=== PATIENT | female | born 1975 | race Caucasian/White ===

== ENCOUNTER → 2024-03-07 09:56 | Outpatient (REF) | payer BC, SELFPAY | LOC: HWEVLT 09:56 | PROVIDERS: ATTENDING PHYSICIAN Radiology Vascular & Interventional Radiology | DX: I83.892 Varicose veins of left lower extremity with other complications (principal) | CPT/HCPCS: 36478; C1769 ==

== ENCOUNTER → 2024-03-21 15:27 | Outpatient (REF) | payer BC, SELFPAY | LOC: HWEVLT 15:27 | PROVIDERS: ATTENDING PHYSICIAN Radiology Diagnostic Radiology | DX: I83.892 Varicose veins of left lower extremity with other complications (principal) | CPT/HCPCS: 93971 ==

== ENCOUNTER → 2024-05-23 12:57 | Outpatient (REF) | payer BC, SELFPAY | LOC: HWEVLT 12:57 | PROVIDERS: ATTENDING PHYSICIAN Radiology Vascular & Interventional Radiology | DX: I83.892 Varicose veins of left lower extremity with other complications (principal) | CPT/HCPCS: 36478 ==

== ENCOUNTER → 2024-06-11 14:56 | Outpatient (REF) | payer BC, SELFPAY | LOC: HWEVLT 14:56 | PROVIDERS: ATTENDING PHYSICIAN Radiology Vascular & Interventional Radiology | DX: I83.893 Varicose veins of bilateral lower extremities with other complications (principal) | CPT/HCPCS: 93970 ==

== ENCOUNTER → 2024-07-03 08:09 | Outpatient (REF) | payer BC, SELFPAY | LOC: HWEVLT 08:09 | PROVIDERS: ATTENDING PHYSICIAN Radiology Diagnostic Radiology | DX: I83.891 Varicose veins of right lower extremity with other complications (principal) | CPT/HCPCS: 36478 ==

== ENCOUNTER → 2024-07-17 10:03 | Outpatient (REF) | payer BC, SELFPAY | LOC: HWEVLT 10:03 | PROVIDERS: ATTENDING PHYSICIAN Radiology Diagnostic Radiology | DX: I83.891 Varicose veins of right lower extremity with other complications (principal) | CPT/HCPCS: 93971 ==

== ENCOUNTER 2024-08-26 06:25 | Day surgery (SDC) | payer BC, SELFPAY | END 2024-08-26 09:44 | disposition home or self-care (01) | LOC: GI 06:25 | PROVIDERS: ATTENDING PHYSICIAN Internal Medicine; FAMILY PHYSICIAN Family Medicine | DX: Z12.11 Encounter for screening for malignant neoplasm of colon (principal); K64.4 Residual hemorrhoidal skin tags; R13.10 Dysphagia, unspecified; K22.4 Dyskinesia of esophagus; K44.9 Diaphragmatic hernia without obstruction or gangrene; K31.89 Other diseases of stomach and duodenum; Z86.0100 Personal history of colon polyps, unspecified | CPT/HCPCS: 43239; G0105; 88305; 88342 ==

== ENCOUNTER → 2024-09-05 08:14 | Outpatient (REF) | payer BC, SELFPAY | LOC: HWEVLT 08:14 | PROVIDERS: ATTENDING PHYSICIAN Radiology Vascular & Interventional Radiology | DX: I83.891 Varicose veins of right lower extremity with other complications (principal) | CPT/HCPCS: 36478; C1769 ==

== ENCOUNTER → 2024-09-25 15:30 | Outpatient (REF) | payer BC, SELFPAY | LOC: HWEVLT 15:30 | PROVIDERS: ATTENDING PHYSICIAN Radiology Diagnostic Radiology | DX: I83.891 Varicose veins of right lower extremity with other complications (principal) | CPT/HCPCS: 93971 ==